=== PATIENT | male | born 1995 | race Two or more races ===

== ENCOUNTER 2017-01-11 21:42 | Emergency (ER) | payer SELFPAY ==
--- NOTE | 2017-01-11 21:47 | EDPHY ---
H & P Time Seen by Provider: 01/11/17 21:48 Constitutional: Initial Vital Signs Temperature (C) 36.5 C 01/11/17 21:54 Heart Rate 101 H 01/11/17 21:54 Respiratory Rate 18 01/11/17 21:54 Blood Pressure 114/60 01/11/17 21:54 O2 Sat (%) 94 01/11/17 21:54 O2 Delivery Mode Room Air Allergies/Adverse Reactions: No Known Allergies Allergy (Unverified 01/11/17 21:58) Home Medications: Medication Instructions Recorded Ativan 01/11/17 LORazepam [Ativan 1 mg (RX)] 0.5 mg PO TID PRN #20 tab 01/11/17 Medical Decision Making - Diagnostics Imaging: CT head negative per Dr Aaron. Will d/c per Dr Fernandez's plan. (Gabe Ferrari) ED Course/Re-evaluation: CHIEF COMPLAINT: First time seizure HISTORY OF PRESENT ILLNESS: This patient is a 21 year old male who presents tot he Emergency Department via EMS following a first-time seizure. Upon arrival, he is mildly disoriented and is bleeding from a laceration on his tongue. He is able to tell me that he has been taking 0.5mg Ativan three times daily for anxiety but stopped taking his Ativan five days prior to arrival without the supervision of his doctor. No additional pertinent medical history. REVIEW OF SYSTEMS: A 10 point review of systems was performed and is negative with the exception of the elements mentioned in the history of present illness. PHYSICAL EXAM: HR 101, BP 114/60, O2 Sat 94%, RR 18. Temp noted General Appearance: Alert, well hydrated, appropriate, and non-toxic appearing. Head: Atraumatic without scalp tenderness or obvious injury Eyes: Pupils equal, round, reactive to light and accommodation, EOMI, no trauma , no injection. Ears: Clear bilaterally, no perforation, normal landmarks Mouth: Left lateral tongue laceration. Nose: Atraumatic, no rhinorrhea, clear. Throat: There is no erythema or exudates, no lesions, normal tonsils, mucus membranes moist. Neck: Supple, 2+ carotid upstroke, nontender, no lymphadenopathy. Respiratory: No retractions, no distress, no wheezes, and no accessory muscle use. Lungs are clear to auscultation bilaterally. Cardiovascular: Regular rate and rhythm, no murmurs, rubs, or gallops. Bilateral carotid, radial, dorsalis pedis, and posterior tibial pulses intact. Good capillary refill all extremities. Gastrointestinal: Abdomen is soft, nontender, non-distended, no masses, no rebound, no guarding, no peritoneal signs. Musculoskeletal: Normal active ROM of all extremities, atraumatic. Neurological: Alert, appropriate, and interactive. The patient has normal DTRs and non-focal cranial nerves, motor, sensory, and cerebellar exam. Skin: No rashes, good turgor, no nodules on palpation. Past medical history: Anxiety. Past surgical history: Denies. Family history: Non-contributory. Social history: No illicit drug use. DIAGNOSTICS/PROCEDURES/CRITICAL CARE TIME: Study: CT of the head Indication: First-time seizure Results: CT scan of the head was obtained. The results of the study are: The study was read by the radiologist, Dr. Niko Aaron. I viewed the images myself on the PACS system. DIFFERENTIAL DIAGNOSIS: The differential diagnosis for the patient's seizure included but was not limited to electrolyte abnormality, benzodiazepine withdrawal, alcohol withdrawal, medication noncompliance, head injury, INFORMATION TECHNOLOGY CONSULTANT structural abnormality, and break through seizure. MEDICAL DECISION MAKING: This normally healthy 21 year old male presents via EMS following a first-time witnessed seizure with a bleeding laceration to his left lateral tongue. He is postictal upon arrival but is able alert and oriented. His exam is otherwise benign. Neurological exam is normal. Given the patient's history of Ativan use and recent decision to stop taking this medication, I am suspicious of a benzo withdrawal seizure. Will proceed with CT of the head to rule out INFORMATION TECHNOLOGY CONSULTANT etiology. 1mg PO Ativan administered. Will provide oral prescription of 0.5 TID and instructions to wane off under supervision of physician. (Rip Fernandez) - Data Points Laboratory Results: 01/11/17 21:48 POC Hgb 18.0 gm/dL H gm/dL (14.5-17.3) POC Hct 53 % H % (42.8-50.6) POC Sodium 145 mEq/L H mEq/L (134-144) POC Potassium 3.1 mEq/L L mEq/L (3.3-5.0) POC Chloride 105 mEq/L mEq/L (96-108) POC BUN 7 mg/dL mg/dL (7-23) POC Creatinine 0.7 mg/dL L mg/dL (0.8-1.5) POC Glucose 70 mg/dL mg/dL (70-100) Medications Given: Discontinued Medications Lorazepam (Ativan Injection) 1 mg IVP EDNOW ONE Stop: 01/11/17 22:02 Last Admin: 01/11/17 22:20 Dose: 1 mg Point of Care Test Results: 01/11/17 21:48 POC Sodium 145 H POC Potassium 3.1 L POC Chloride 105 POC BUN 7 POC Creatinine 0.7 L POC Glucose 70 Departure - Departure Disposition: Home, Routine, Self-Care Clinical Impression: New onset seizure Benzodiazepine withdrawal Qualifiers: Complication of substance-induced condition: uncomplicated Qualified Code(s): F13.230 - Sedative, hypnotic or anxiolytic dependence with withdrawal, uncomplicated Condition: Good Instructions: New-Onset Seizure in Adults (ED) Additional Instructions: 1. Take 0.5mg Ativan three times daily. You should not stop taking Ativan abruptly as this can cause seizures. I recommend that you discuss how to best ween yourself off of this medication with your prescribing physician. 2. Follow-up with a neurologist for further evaluation of your seizures. You should not drive a care or engage in any activities that would be dangerous if you were to have a seizure while doing them (swimming, climbing, riding a bicycle, etc.) until you have been evaluated by a neurologist. 3. Return to the Emergency Department with repeat seizure, headache, confusion, vision or speech changes, weakness, or other serious concerns. Referrals: Chintan Lala MD [Medical Doctor] - As per Instructions Prescriptions: LORazepam [Ativan 1 mg (RX)] 0.5 mg PO TID PRN #20 tab PRN Reason: Anxiety Report Scribed for: Rip Fernandez Report Scribed by: Shruti Christian Date of Report: 01/11/17 Time of Report: 21:48
[2017-01-11 21:58] VITALS: TEMP 97.7
[2017-01-11] MEDS ORDERED: IOPAMIDOL (ISOVUE-300) 100 ML BTL IV ONE (22:00)
[2017-01-11] MEDS ORDERED: LORazepam 2 MG/ML INJ IVP ONE (22:01)
[2017-01-11 22:48] VITALS: BP 127/72; PULSE 84; RESP 16; O2SAT 97
== END 2017-01-11 23:37 | disposition home or self-care (01) ==
DX: R56.9 Unspecified convulsions (principal); F13.230 Sedative, hypnotic or anxiolytic dependence with withdrawal, uncomplicated
CPT/HCPCS: 82947-QW; 96374; J2060; Q9967